=== PATIENT | female | born 1980 | race Caucasian/White ===

== ENCOUNTER 2017-05-15 09:30 | Inpatient (IN) | payer MEDICAID ==
[2017-05-13 18:40] VITALS: BP 126/60; PULSE 79; RESP 18
[~2017-05-15] VITALS: Ht 152.4 cm; Wt 85.0 kg
[2017-05-15 11:08] VITALS: BP 137/73; PULSE 75; RESP 18
[2017-05-15 11:12] VITALS: Ht 152.4 cm; Wt 85.0 kg
[2017-05-15] MEDS ORDERED: LACTATED RINGER'S 1,000 ML IV SCH (11:13)
[2017-05-15] MEDS ORDERED: LACTATED RINGER'S 1,000 ML IV PRN (11:30)
[2017-05-15] MEDS ORDERED: MISOPROSTOL 200 MCG TAB PR PRN ×2 (11:30→19:00)
[2017-05-15] MEDS ORDERED: LIDOCAINE 1% (MPF) 30 ML INJ INJ PRN (11:30)
[2017-05-15] MEDS ORDERED: OXYTOCIN 30 UNITS/LR 500 ML IV SCH ×3 (11:30)
[2017-05-15] MEDS ORDERED: CARBOPROST 250 MCG INJ IM PRN ×2 (11:30→19:00)
[2017-05-15] MEDS ORDERED: OXYTOCIN 30 UNITS/LR 500 ML IV PRN ×2 (11:30→19:00)
[2017-05-15] MEDS ORDERED: BUTORPHANOL 2 MG INJ IV PRN (11:30)
[2017-05-15] MEDS ORDERED: METHYLERGONOVINE 0.2 MG INJ IM PRN ×2 (11:30→19:00)
[2017-05-15] MEDS ORDERED: AMPICILLIN 2 GM/NS (PMX) 100 ML IV ONE (11:30)
[2017-05-15] MEDS ORDERED: IBUPROFEN 600 MG TAB PO PRN (11:30)
[2017-05-15 11:46] LABS: BASOPHILS % 0.2 % (0.0-2.0); EOSINOPHILS # 0.1 10^3/ul (0.0-0.5); EOSINOPHILS % 0.7 % (0.0-7.0); HEMATOCRIT 38.9 % (37.0-47.0); HEMOGLOBIN 13.5 g/dl (12.0-16.0); LYMPHOCYTES # 1.3 10^3/ul (0.8-2.9); LYMPHOCYTES % 15.1 % (15.0-51.0); MEAN CORPUSCULAR HEMOGLOBIN 32.2 pg (29.0-33.0); MEAN CORPUSCULAR HGB CONC 34.7 g/dl (32.0-37.0); MEAN CORPUSCULAR VOLUME 92.8 fl (82.0-101.0); MEAN PLATELET VOLUME 12.1 fl (7.4-10.4); MONOCYTE # 0.4 10^3/ul (0.3-0.9); MONOCYTES % 4.8 % (0.0-11.0); NEUTROPHIL # 6.6 10^3/ul (1.6-7.5); NEUTROPHILS % 78.6 % (39.0-77.0); PLATELET COUNT 191 10^3/UL (140-415); RED BLOOD COUNT 4.19 10^6/ul (4.20-5.40); RED CELL DISTRIBUTION WIDTH 13.7 % (11.5-14.5); WHITE BLOOD COUNT 8.4 10^3/ul (4.8-10.8)
[2017-05-15 11:51] LABS: INR 0.91; PROTIME 12.2 Sec (12.2-14.2)
[2017-05-15 11:52] LABS: PARTIAL THROMBOPLASTIN TIME 27.2 Sec (25.0-35.0)
[2017-05-15] MEDS ORDERED: AMPICILLIN 1 GM/NS (PMX) 50 ML IV SCH (15:30)
--- NOTE | 2017-05-15 16:48 | LDN ---
Date/Time of Note Date/Time of Note DATE: 05/15/17 TIME: 16:44 Delivery Summary .May 15, 2017 Spontaneous vaginal delivery report Weeks of Gestation 40 weeks and 1 day Placenta Delivered: Spontaneously Meconium: none Episiotomy: No Anesthesia type: None Estimated blood loss: 200 Any foreign bodies felt in the: No Problems: Delivery Information Sex Sex: female Apgars 1 Minute: 8 5 Minute: 9 Suctioning Nose & mouth suctioned at mary: Yes Umbilical Cord Umbilical cord with: 3 Vessels Cord presentations: no nuchal cord Nuchal cord present X: 1 Cord Blood was obtained: Yes Mother & Baby Disposition Disposition Laboratory Tests Test 05/15/17 10:30 White Blood Count 8.410^3/ul Red Blood Count 4.1910^6/ul Hemoglobin 13.5g/dl Hematocrit 38.9% Mean Corpuscular Volume 92.8fl Mean Corpuscular Hemoglobin 32.2pg Mean Corpuscular Hemoglobin Concent 34.7g/dl Red Cell Distribution Width 13.7% Platelet Count 86875^3/UL Mean Platelet Volume 12.1fl Neutrophils % 78.6% Lymphocytes % 15.1% Monocytes % 4.8% Eosinophils % 0.7% Basophils % 0.2% Nucleated Red Blood Cells % 0.0/100WBC Neutrophils # 6.610^3/ul Lymphocytes # 1.310^3/ul Monocytes # 0.410^3/ul Eosinophils # 0.110^3/ul Basophils # 0.010^3/ul Nucleated Red Blood Cells # 0.010^3/ul Prothrombin Time 12.2Sec Prothrombin Time Ratio 1.0 INR International Normalized Ratio 0.91 Activated Partial Thromboplast Time 27.2Sec Hepatitis B Surface Antigen NEGATIVE Current Medications Medications (Trade) Dose Ordered Sig/Josee Route PRN Reason Start Time Stop Time Status Last Admin Dose Admin Lactated Ringer's 1,000 ml @ 125 mls/hr Q8H IV 05/15/17 11:13 05/15/17 11:48 Ampicillin 100 ml @ 100 mls/hr ONCE ONCE IV 05/15/17 11:30 05/15/17 12:29 DC 05/15/17 12:50 Ampicillin 50 ml @ 100 mls/hr Q4H IV 05/15/17 15:30 Oxytocin/Lactated Ringer's 500 ml @ 0 mls/hr TITRATE IV 05/15/17 11:30 05/15/17 12:56 Butorphanol Tartrate (Stadol) 1 mg Q2H PRN IV PAIN 05/15/17 11:30 Lidocaine 30 ml 30 ml ONCE PRN INJ EPISIOTOMY/TEARING 05/15/17 11:30 Oxytocin/Lactated Ringer's 500 ml @ 125 mls/hr ONCE -MAY REPEAT X1 IV 05/15/17 11:30 05/15/17 16:11 Oxytocin/Lactated Ringer's 500 ml @ 125 mls/hr ONCE IV 05/15/17 11:30 05/15/17 16:30 Ibuprofen 600 mg 600 mg ONCE PRN PO Mild Pain (Pain Score 1-3) 05/15/17 11:30 05/15/17 16:26 Lactated Ringer's 1,000 ml @ 2,000 mls/hr Q30M PRN IV PRE-EPIDURAL BOLUS 05/15/17 11:30 Oxytocin/Lactated Ringer's 500 ml @ 0 mls/hr ONCE PRN IV For Hemorrhage Management 05/15/17 11:30 Methylergonovine Maleate (Methergine) 0.2 mg ONCE PRN IM VAGINAL BLEEDING 05/15/17 11:30 Carboprost Tromethamine (Hemabate) 250 mcg ONCE PRN IM VAGINAL BLEEDING 05/15/17 11:30 Misoprostol (Cytotec) 1,000 mcg ONCE PRN [place] VAGINAL BLEEDING 05/15/17 11:30 Mom & Baby to Maternity; Good: Yes Mom transferred to: Med/Surg Baby to NICU: No SHYAM MALIK MD May 15, 2017 16:48
--- NOTE | 2017-05-15 17:31 | HP ---
Date/Time of Note Date/Time of Note DATE: 05/15/17 TIME: 17:29 OB - History Hx of Present Free Text/Dictation Admitted for induction of labor at 40+ weeks Last Menstrual Period: Aug 06, 2016 Estimated Due Date: May 13, 2017 : 4 Para: 3 Obstetrical Complications: None Medical Complications: None Past Family/Social History * Past Medical, Surgical, Family and Obstetric Histories reviewed from chart. Blood Type: O+ Rubella: immune RPR/VDRL: Negative GBS Status: Positive HBsAG: Negative OB Admission Exam Vital Signs Vital Signs Vital Signs Date Time Temp Pulse Resp B/P Pulse Ox O2 Delivery O2 Flow Rate FiO2 05/15/17 11:08 99.0 75 18 137/73 Room Air Physical Exam HEENT: WNL Heart: Rhythm Normal Lungs: Clear, Equal Abdomen: WNL Extremities: Normal Reflexes: Normal Cervical Dilatation: 3cm Effacement: 50% Station: -3 Membranes: Intact Accelerations: Accelerations Present Varibility: Marked Contractions on Admission: None Last 72 hours Lab Results CBC & BMP 05/15/17 10:30 OB Assessment/Plan Reason for admission: induction of labor Other Assessment: Term gestation Postterm Other plan: Started on Pitocin augmentation of labor ALEA GONZALES MD May 15, 2017 17:31
[2017-05-15] MEDS ORDERED: LACTATED RINGER'S 1,000 ML IV* SCH (18:36)
[2017-05-15] MEDS ORDERED: ZOLPIDEM 5 MG TAB PO PRN (19:00)
[2017-05-15] MEDS ORDERED: HYDROCODONE/APAP (5/325) TAB PO PRN ×2 (19:00)
[2017-05-15] MEDS ORDERED: BENZOCAINE 20% 56 ML SPRAY TOP PRN (19:00)
[2017-05-15] MEDS ORDERED: WITCH HAZEL/GLYCERIN PAD PR PRN (19:00)
[2017-05-15] MEDS ORDERED: DIBUCAINE 1% 30 GM OINT PR PRN (19:00)
[2017-05-15] MEDS ORDERED: LANOLIN 7 GM TUBE TOP PRN (19:00)
[2017-05-15 20:15] VITALS: BP 110/59; PULSE 72; RESP 20
[2017-05-15] MEDS: SENNA/DOCUSATE NA (8.6MG/50MG) TAB PO SCH (21:00)
[2017-05-15] MEDS: MAGNESIUM HYDROXIDE 30ML CUP PO SCH (21:00)
[2017-05-16] VITALS (22 sets, daily range): BP systolic 90–143; BP diastolic 49–63; PULSE 66–82; RESP 14–21
[2017-05-16] MEDS: IBUPROFEN 600 MG TAB PO SCH ×4 (00:06→18:00)
[2017-05-16] MEDS ORDERED: CEFAZOLIN 1 GM INJ ONE (07:00)
[2017-05-16] MEDS: SENNA/DOCUSATE NA (8.6MG/50MG) TAB PO SCH ×2 (09:00→21:00)
[2017-05-16] MEDS: MAGNESIUM HYDROXIDE 30ML CUP PO SCH ×2 (09:00→21:00)
[2017-05-16 09:14] LABS: BASOPHILS % 0.2 % (0.0-2.0); EOSINOPHILS # 0.1 10^3/ul (0.0-0.5); EOSINOPHILS % 0.5 % (0.0-7.0); HEMOGLOBIN 12.9 g/dl (12.0-16.0); LYMPHOCYTES # 1.4 10^3/ul (0.8-2.9); LYMPHOCYTES % 11.8 % (15.0-51.0); MEAN CORPUSCULAR HEMOGLOBIN 31.3 pg (29.0-33.0); MEAN CORPUSCULAR HGB CONC 33.1 g/dl (32.0-37.0); MEAN CORPUSCULAR VOLUME 94.7 fl (82.0-101.0); MEAN PLATELET VOLUME 11.8 fl (7.4-10.4); MONOCYTE # 0.5 10^3/ul (0.3-0.9); MONOCYTES % 4.4 % (0.0-11.0); NEUTROPHIL # 9.7 10^3/ul (1.6-7.5); NEUTROPHILS % 82.5 % (39.0-77.0); PLATELET COUNT 177 10^3/UL (140-415); RED BLOOD COUNT 4.12 10^6/ul (4.20-5.40); RED CELL DISTRIBUTION WIDTH 14.1 % (11.5-14.5); WHITE BLOOD COUNT 11.7 10^3/ul (4.8-10.8)
--- NOTE | 2017-05-16 16:19 | PN ---
Date/Time of Note Date/Time of Note DATE: 05/16/17 TIME: 16:17 Assessment/Plan VTE Prophylaxis VTE Prophylaxis Intervention: ambulation Lines/Catheters IV Catheter Type (from Nrs): Peripheral IV Assessment/Plan Assessment/Plan multiparity with desire for sterilization will proceed with BTL Subjective 24 Hr Interval Summary Free Text/Dictation S/P vaginal delivery patient desires sterilization Constitutional: improved, no complaints Eyes: no complaints ENT: no complaints Respiratory: no complaints Cardiovascular: no complaints Gastrointestinal: no complaints Genitourinary: no complaints Musculoskeletal: no complaints Skin: no complaints Neurologic: no complaints Endocrine: no complaints Lymphatic: no complaints Psychological: nl mood/affect, no complaints Immunologic: no complaints Exam/Review of Systems Vital Signs Vitals Vital Signs Date Time Temp Pulse Resp B/P Pulse Ox O2 Delivery O2 Flow Rate FiO2 05/16/17 16:00 98.3 66 18 108/54 Room Air Intake and Output 05/15/17 05/15/17 05/16/17 15:00 23:00 07:00 Intake Total 432 ml 1810 ml Output Total 450 ml 1213 ml Balance -18 ml 597 ml Exam Patient in no acute stress Constitutional: alert, oriented, well developed Psych: nl mood/affect, no complaints Head: atraumatic, normocephalic Eyes: EOMI, PERRL, nl conjunctiva, nl lids, nl sclera ENMT: nl external ears & nose, nl lips & teeth, nl nasal mucosa & septum Neck: non-tender, supple Respiratory: clear to auscultation, normal air movement Cardiovascular: nl pulses, regular rate and rhythm Gastrointestinal: nl liver, spleen, non-tender, soft Genitourinary - Female: other (lochia is moderate ), uterus (fundus is firm ) Musculoskeletal: nl extremities to inspection, nl gait and stance Extremities: normal pulses Neurological: DATA DESIGNER II-XII intact, nl mental status, nl speech, nl strength Skin: nl turgor, No rash or lesions Lymph: nl lymph nodes Results Result Diagram: 05/16/17 0849 Results 24 hrs Laboratory Tests Test 05/16/17 08:49 White Blood Count 11.7 #H Red Blood Count 4.12 L Hemoglobin 12.9 Hematocrit 39.0 Mean Corpuscular Volume 94.7 Mean Corpuscular Hemoglobin 31.3 Mean Corpuscular Hemoglobin Concent 33.1 Red Cell Distribution Width 14.1 Platelet Count 177 Mean Platelet Volume 11.8 H Neutrophils % 82.5 H Lymphocytes % 11.8 L Monocytes % 4.4 Eosinophils % 0.5 Basophils % 0.2 Nucleated Red Blood Cells % 0.0 Neutrophils # 9.7 H Lymphocytes # 1.4 Monocytes # 0.5 Eosinophils # 0.1 Basophils # 0.0 Nucleated Red Blood Cells # 0.0 Medications Medications Current Medications Ibuprofen (Motrin) 600 mg Q6 PO Last administered on 05/16/17t 05:57; Admin Dose 600 MG; Start 05/16/17 at 00:00 Acetaminophen/ Hydrocodone Bitart ([place] (5/325)) 1 tab Q4H PRN PO PAIN LEVEL 1 -5; Start 05/15/17 at 19:00 Acetaminophen/ Hydrocodone Bitart ([place] (5/325)) 2 tab Q4H PRN PO PAIN LEVEL 6 -10; Start 05/15/17 at 19:00 Zolpidem Tartrate (Ambien) 5 mg QHS PRN PO INSOMNIA; Start 05/15/17 at 19:00 Senna/Docusate Sodium (Senokot-S) 1 tab BID PO ; Start 05/15/17 at 21:00 Magnesium Hydroxide (Milk Of Mag) 30 ml Q12 PO ; Start 05/15/17 at 21:00 Measles/Mumps/ Rubella Vaccine Live (Mmr Ii Vaccine) 0.5 ml ONCE ONCE SC* ; Start 05/17/17 at 09:00; Stop 05/17/17 at 09:01 Diphtheria/ Tetanus/Acell Pertussis (Adacel) 0.5 ml ONCE ONCE IM* ; Start 05/17 at 09:00; Stop 05/17/17 at 09:01 Varicella Virus Vaccine Live 1350 unit 1,350 unit ONCE ONCE SC* ; Start at 09:00; Stop 05/17/17 at 09:01 Oxytocin/Lactated Ringer's 500 ml @ 0 mls/hr ONCE PRN IV For Hemorrhage Management; Start 05/15/17 at 19:00 Methylergonovine Maleate (Methergine) 0.2 mg ONCE PRN IM VAGINAL BLEEDING; Start 05/15/17 at 19:00 Carboprost Tromethamine (Hemabate) 250 mcg ONCE PRN IM VAGINAL BLEEDING; Start 05/15/17 at 19:00 Misoprostol (Cytotec) 1,000 mcg ONCE PRN NE VAGINAL BLEEDING; Start 05/15/17 at 19:00 ALEA GONZALES MD May 16, 2017 16:19
[2017-05-16] MEDS ORDERED: BUPIVACAINE 0.5%/EPI (SDV) 30 ML INJ ONE (19:06)
[2017-05-16] MEDS ORDERED: FENTAnyl 50 MCG/ML VIAL ONE (21:00)
[2017-05-16] MEDS ORDERED: MIDAZOLAM 1 MG/ML 2 ML INJ ONE (21:04)
[2017-05-16] MEDS ORDERED: BUPIVACAINE 0.5%/EPI (SDV) 30 ML INJ INJ ONE (21:30)
[2017-05-16] MEDS ORDERED: KETOROLAC 60 MG INJ IM STA (22:08)
--- NOTE | 2017-05-16 22:12 | OPR ---
Operative Report Planned Procedure Procedure date May 16, 2017 Procedure(s) Bilateral tubal ligation Performed by see signature line Anesthesiologist: ROSARIO DAY Pre-procedure diagnosis Multiparity with desire for sterilization Status post vaginal delivery Anesthesia Type: spinal Procedure Description .The patient was placed on the OR table in supine position. Spinal anesthesia was placed. A Conner catheter was then inserted into urinary bladder under aseptic condition. After induction of spinal anesthesia, with the patient in supine position, abdominal area was prepped and draped for usual tubal ligation procedure. Under satisfactory anesthesia, a small incision 2 to 3 cm in length was placed just below belly button, incision extended laterally to 1.5 cm lateral to the linea nigra on either side. Incision was carried down with sharp and blunt dissection until fascia was reached. Anterior recti muscle fascia was incised in the midportion. Incision extended laterally to the border of the skin incision. Peritoneum was visualized. Avoiding bowel or bladder, incision was made in peritoneum, which was extended laterally to the border of the skin incision. Two [place] retractors were placed inside the incision. Incision was brought up to the level of the left fallopian tube. Fallopian tube was raised in the mid portion. A clamp was placed below the fimbriated end, most of the fallopian tube from the mesosalpinx traversing the isthmus portion of the tube. Another clamp was placed just below the first and 0 Vicryl tie was used to tie the mesosalpinx and the stump of the fallopian tube on the proximal side. Another stitch of the same kind was used for adequate hemostasis. Hemostasis appeared to be secure on ligated sites of the fallopian tube. Tube was incised above the stitched area. Same procedure was done on the fallopian tube on opposite side. Hemostasis appeared to be secure on ligated sites of either fallopian tubes. Ovaries were within normal limits. Uterus appears to be size. Announcing needle, lap, sponge and instrument count to be correct, abdomen was closed in layers as follows: Peritoneum with running stitches of #1 Vicryl, fascia edges of #1 Vicryl, subcutaneous tissue with running stitches of #1 Vicryl, and skin was reapproximated using subcuticular stitches of 4-0 Monocryl on a PS2 needle and also Dermabond was placed on the incision. The patient tolerated the procedure very well and was transferred to postanesthesia recovery room in stable and good condition. ESTIMATED BLOOD LOSS: Less than 5 mL. Post-Procedure Post-procedure diagnosis This post bilateral tubal ligation Findings: Normal right and left fallopian tubes Estimated blood loss: minimal Specimen(s): yes (see below) Specimen(s) description Segments of right and left fallopian tubes Grafts/Implants: no Complication(s): no Pt Condition post procedure: stable Disposition: PACU Physician Certification I, the undersigned physician, hereby certify that I have discussed the procedure described in this consent form with this patient (or the patient's legal customer response representative), including: * The risk and benefits of the procedure; * Any adverse reactions that may reasonably be expected to occur; * Any alternative efficacious methods of treatment which may be medically viable ; * The potential problems that may occur during recuperation; * Potential for blood transfusion and associated risks/benefits; and * Any research or economic interest I may have regarding this treatment. I further certify that the patient/legally responsible person was encouraged to ask question and that all questions were answered. ALEA GONZALES MD May 16, 2017 22:12
--- NOTE | 2017-05-16 22:13 | DS ---
Date/Time of Note Date/Time of Note Home following the DATE: 05/16/17 TIME: 22:13 Obstetrical Discharge Record Final Diagnosis Final Diagnosis: Term delivered Other Final Diagnosis Status post vaginal delivery and bilateral tubal ligation Vaginal Delivery Obstetrical Delivery: Spontaneous, Bilateral Tubal Ligation Complications Augmentation: Yes Condition on Discharge Physical Assessment Last Vitals: See nurse's notes Voiding: Yes Bowel Movement: Yes Breast: Soft, non-tender, Filling Fundus: Firm Abdomen and Incision: Abdomen is soft incision is covered Episiotomy: Not applicable Calf Tenderness: No Patient Condition: Good ALEA GONZALES MD May 16, 2017 22:13
--- NOTE | 2017-05-16 22:15 | PD.PPDC ---
PREFORMS LAMINATOR Discharge Instruction Provider Information Physician Information 36-year-old female had vaginal delivery and bilateral tubal ligation Diagnosis Final Diagnosis: Status post vaginal delivery and bilateral tubal ligation Condition Patient Condition: Good Diet Diet: Resume Regular Diet Activity/Restrictions Activity: May Shower Restrictions: No Exercising No Lifting Nothing in the Vagina Return to Work or School: Jun 30, 2017 Follow-up Follow-up with Physician: 4, Week/Weeks (In clinic) Return to clinic for OB Instructions: Breast Tenderness Depression Comment: Pelvic rest and no heart activity for 6 week ALEA GONZALES MD May 16, 2017 22:15
[2017-05-16] MEDS ORDERED: EPHEDrine SULFATE 50 MG/5 ML SYG IV PRN (22:30)
[2017-05-16] MEDS ORDERED: LABETALOL HCL 20MG INJ IV PRN (22:30)
[2017-05-16] MEDS ORDERED: BUTORPHANOL 2 MG INJ IM ONE (22:30)
[2017-05-16] MEDS ORDERED: METOCLOPRAMIDE 10 MG INJ IV PRN (22:30)
[2017-05-16] MEDS ORDERED: KETOROLAC 30 MG INJ IV PRN (22:30)
[2017-05-16] MEDS ORDERED: FENTAnyl 50 MCG/ML VIAL IV PRN ×3 (22:30)
[2017-05-16] MEDS ORDERED: hydrALAzine 20 MG INJ IV PRN (22:30)
[2017-05-16] MEDS ORDERED: ONDANSETRON 4 MG INJ IV PRN (22:30)
[2017-05-16] MEDS: LACTATED RINGER'S 1,000 ML IV SCH (23:30)
[2017-05-17 04:00] VITALS: BP 110/63; PULSE 71; PULSE 72; RESP 19
[2017-05-17] MEDS: IBUPROFEN 600 MG TAB PO SCH ×3 (05:39→11:31)
[2017-05-17] MEDS: LACTATED RINGER'S 1,000 ML IV SCH (08:08)
[2017-05-17 08:45] VITALS: BP 112/53; PULSE 68; RESP 18
[2017-05-17] MEDS ORDERED: VARICELLA VACCINE LIVE/PF 1,350 UNIT/0.5 ML ML SC* ONE (09:00)
[2017-05-17] MEDS ORDERED: DIPHTH/TET/ACEL PERTUSS (ADULT) 0.5 ML VIAL IM* ONE (09:00)
[2017-05-17] MEDS ORDERED: MEASLES,MUMPS,RUBELLA VACCINE INJ SC* ONE (09:00)
[2017-05-17] MEDS: SENNA/DOCUSATE NA (8.6MG/50MG) TAB PO SCH (09:06)
[2017-05-17] MEDS: MAGNESIUM HYDROXIDE 30ML CUP PO SCH (09:09)
== END 2017-05-17 16:06 | disposition home or self-care (01) | DRG 767 ==
LOC: L-D 10:02 → PP1 18:31
PROVIDERS: ADMIT Obstetrics & Gynecology; ATTEND Obstetrics & Gynecology
PROC: 3E0P3VZ Introduction of Hormone into Female Reproductive, Percutaneous Approach (ICD-10-PCS; 2017-05-15)
PROC: 10E0XZZ Delivery of Products of Conception, External Approach (ICD-10-PCS; principal; 2017-05-15 09:30)
PROC: 0UL70ZZ Occlusion of Bilateral Fallopian Tubes, Open Approach (ICD-10-PCS; 2017-05-16)
DX: O48.0 Post-term pregnancy (principal); E66.01 Morbid (severe) obesity due to excess calories; Z3A.40 40 weeks gestation of pregnancy; O99.214 Obesity complicating childbirth; Z68.36 Body mass index [BMI] 36.0-36.9, adult; Z37.0 Single live birth
CPT/HCPCS: 85025; 85610; 85730; 86592; 86900; 86901; 87340; 88302; 90715; 90716; J0290; J0595; J0690; J1885; J2250; J2590; J3010; J7120